=== PATIENT | male | born 1950 | race Caucasian/White ===

== ENCOUNTER → 2017-12-20 | Outpatient (CLI) | payer BC, MEDICARE ==
[~2017-12-20] MED LIST: ACET325; AMPDEX10 PO; ASPI81EC PO; CELE200 PO; CHLO500 PO; DHEA PO; DIVA250EC PO; DULO60; Depo-Testos200 MG/ML IM; ERGO400 PO; ESOM20 PO; FAMO20 PO; FISH1000 PO; Fish Oil 10001000 MG; GABA300 PO; GABA600 PO; LEVSOD100 PO; LORA.5 PO; MULVITMIND PO; Multivitamin1 EAC1; OMEP20ER PO; PRAV20 PO; Pravachol40 MG PO; TAMS.4ER; TRAM50 PO; VERA80 PO; ZOLP12.5 PO
[2017-12-20 18:19] LABS: BASOPHILS ABSOLUTE AUTO 0.05 K/mm3 (0.00-0.23); BASOPHILS PERCENT AUTO 1 % (0-2); EOSINOPHILS PERCENT AUTO 2 % (0-6); Hemoglobin 14.3 g/dL (13.5-17.5); IMMATURE GRAN PERCENT AUTO 0 % (0-1); LYMPHOCYTES ABSOLUTE AUTO 2.61 K/mm3 (0.84-5.20); LYMPHOCYTES PERCENT AUTO 39 % (21-46); MONOCYTES ABSOLUTE AUTO 0.57 K/mm3 (0.16-1.47); MONOCYTES PERCENT AUTO 9 % (4-13); Mean Corpuscular HGB 31.7 pg (26.0-34.0); Mean Corpuscular HGB Conc 34.9 g/dL (31.5-36.5); Mean Corpuscular Volume 91 fL (80-100); Mean Platelet Volume 9.8 fL (9.1-12.4); NEUTROPHILS ABSOLUTE AUTO 3.33 K/mm3 (1.96-9.15); NEUTROPHILS PERCENT AUTO 50 % (41-73); Platelet Count 208 K/mm3 (150-400); RDW Coefficient Variation 11.9 % (11.7-14.2); RDW Standard Deviation 39.5 fL (35.1-46.3); Red Blood Cell Count 4.51 M/mm3 (4.30-5.90); White Blood Cell Count 6.66 K/mm3 (4.00-11.30)
[2017-12-20 19:00] LABS: Alanine Aminotransfer (ALT/SGP 34 U/L (12-78); Albumin, Blood 4.2 g/dL (3.4-5.0); Albumin/Globulin Ratio 1.3 (0.8-1.8); Alk Phos 95 U/L (40-126); Aspartate Aminotrans (AST/SGOT 19 U/L (12-37); Bilirubin, Total 1.2 mg/dL (0.1-1.0); Blood Urea Nitrogen 15 mg/dL (8-24); Bun/Creatinine Ratio 12.2 (12.0-20.0); CO2, Blood 28 mmol/L (21-32); Calcium, Blood 9.5 mg/dL (8.5-10.1); Creatinine, Blood 1.23 mg/dL (0.60-1.20); Globulin, Blood 3.3 g/dL (2.2-4.0); Glomerular Filtration Rate 59 (60-); Glucose, Blood 92 mg/dL (70-99); Thyroid Stimulating Hormone 8.158 uIU/mL (0.360-4.800); Total Protein, Blood 7.5 g/dL (6.4-8.2)
[2017-12-20 19:03] LABS: Anion Gap 6 mmol/L (6-16); Chloride, Blood 104 mmol/L (98-108); Potassium, Blood 3.9 mmol/L (3.5-5.5); Sodium, Blood 138 mmol/L (136-145); Troponin I <0.017 ng/mL (0.000-0.040)
== END ==
LOC: LAB SHORT 18:14
PROVIDERS: Physician Assistant
DX: E03.9 Hypothyroidism, unspecified (principal); R07.9 Chest pain, unspecified
CPT/HCPCS: 80053; 83690; 84443; 84484; 85025

== ENCOUNTER → 2018-08-03 | Outpatient (CLI) | payer BC ==
[2018-08-03 17:27] LABS: BASOPHILS ABSOLUTE AUTO 0.07 K/mm3 (0.00-0.23); BASOPHILS PERCENT AUTO 1 % (0-2); EOSINOPHILS ABSOLUTE AUTO 0.05 K/mm3 (0.00-0.68); EOSINOPHILS PERCENT AUTO 1 % (0-6); Hematocrit 40.3 % (37.0-53.0); Hemoglobin 14.3 g/dL (13.5-17.5); IMMATURE GRAN ABSOLUTE AUTO 0.01 K/mm3 (0.00-0.10); IMMATURE GRAN PERCENT AUTO 0 % (0-1); LYMPHOCYTES ABSOLUTE AUTO 2.17 K/mm3 (0.84-5.20); LYMPHOCYTES PERCENT AUTO 35 % (21-46); MONOCYTES ABSOLUTE AUTO 0.69 K/mm3 (0.16-1.47); MONOCYTES PERCENT AUTO 11 % (4-13); Mean Corpuscular HGB 33.4 pg (26.0-34.0); Mean Corpuscular HGB Conc 35.5 g/dL (31.5-36.5); Mean Corpuscular Volume 94 fL (80-100); Mean Platelet Volume 9.7 fL (9.1-12.4); NEUTROPHILS ABSOLUTE AUTO 3.25 K/mm3 (1.96-9.15); NEUTROPHILS PERCENT AUTO 52 % (41-73); Platelet Count 221 K/mm3 (150-400); RDW Coefficient Variation 12.7 % (11.7-14.2); RDW Standard Deviation 43.6 fL (35.1-46.3); Red Blood Cell Count 4.28 M/mm3 (4.30-5.90); White Blood Cell Count 6.24 K/mm3 (4.00-11.30)
[2018-08-03 17:54] LABS: Alanine Aminotransfer (ALT/SGP 31 U/L (12-78); Albumin, Blood 4.3 g/dL (3.4-5.0); Albumin/Globulin Ratio 1.3 (0.8-1.8); Alk Phos 81 U/L (40-126); Anion Gap 11 mmol/L (6-16); Aspartate Aminotrans (AST/SGOT 24 U/L (12-37); Bilirubin, Total 0.9 mg/dL (0.1-1.0); Blood Urea Nitrogen 10 mg/dL (8-24); Bun/Creatinine Ratio 10.1 (12.0-20.0); CO2, Blood 26 mmol/L (21-32); Calcium, Blood 9.6 mg/dL (8.5-10.1); Chloride, Blood 105 mmol/L (98-108); Creatinine, Blood 0.99 mg/dL (0.60-1.20); Globulin, Blood 3.2 g/dL (2.2-4.0); Glomerular Filtration Rate >60 (60-); Glucose, Blood 93 mg/dL (70-99); Potassium, Blood 3.9 mmol/L (3.5-5.5); Sodium, Blood 142 mmol/L (136-145); Thyroid Stimulating Hormone 3.003 uIU/mL (0.360-4.800); Total Protein, Blood 7.5 g/dL (6.4-8.2)
== END | disposition home or self-care (01) ==
LOC: LAB EV 17:12 → LAB SHORT 17:12
PROVIDERS: Physician Assistant
DX: E03.9 Hypothyroidism, unspecified (principal); R07.0 Pain in throat
CPT/HCPCS: 80053; 84439; 84443; 84481; 85025; 87070

== ENCOUNTER 2019-09-05 08:40 | Day surgery (SDC) | payer BC ==
[~2019-09-05] VITALS: Ht 170.2 cm; Wt 89.4 kg
[~2019-09-05 08:40] MED LIST changes: +CELE100; +FISH OIL 1,0001 EAC1; +GABA300; +MELATONIN 10 M1 EACH; +OMEPRAZOLE20 MG; +PETADOLEX 7575 MG; +TRAZ50
--- NOTE | 2019-09-05 09:49 | NUR ---
09/05/19 0949 Chasity Taylor 0940- DR KUHN PREPPED PT IN [place]-OP HOLDING AREA FOR INTERSCALENE BLOCK. PT TOLERATED PROCEDURE WELL. NO COMPLICATIONS.
--- NOTE | 2019-09-05 12:17 | NUR ---
09/05/19 Katy6 Britney Lange PT RESTING ON BED, FAMILY AT BEDSIDE. PT VS WNL. PT DENIES ANY PAIN OR NAUSEA. WILL CONTINUE TO MONITOR.
== END 2019-09-05 13:45 | disposition home or self-care (01) ==
LOC: ORSCSDS 08:40
PROVIDERS: Orthopaedic Surgery
PROC: 0LQ14ZZ Repair Right Shoulder Tendon, Percutaneous Endoscopic Approach (ICD-10-PCS; principal; 2019-09-05 10:00)
PROC: 0LS14ZZ Reposition Right Shoulder Tendon, Percutaneous Endoscopic Approach (ICD-10-PCS; principal; 2019-09-05 10:00)
PROC: 0RNJ4ZZ Release Right Shoulder Joint, Percutaneous Endoscopic Approach (ICD-10-PCS; principal; 2019-09-05 10:00)
DX: M75.111 Incomplete rotator cuff tear or rupture of right shoulder, not specified as traumatic (principal); S46.111A Strain of muscle, fascia and tendon of long head of biceps, right arm, initial encounter; M75.41 Impingement syndrome of right shoulder; I10 Essential (primary) hypertension; E03.9 Hypothyroidism, unspecified; Z79.899 Other long term (current) drug therapy; E78.5 Hyperlipidemia, unspecified
CPT/HCPCS: C1713; J0171; J0690; J1100; J1885; J2001; J2250; J2370; J2405; J2704; J2795; J3010; J7120

== ENCOUNTER → 2020-01-25 | Outpatient (CLI) | payer BC | LOC: LAB EV 11:37 → LAB SHORT 11:37 | DX: J02.9 Acute pharyngitis, unspecified (principal) | CPT/HCPCS: 87081 ==

== ENCOUNTER 2020-08-24 15:23 | Emergency (ER) | payer BC ==
[~2020-08-24] VITALS: Ht 170.2 cm; Wt 90.7 kg
[2020-08-24 16:23] LABS: BASOPHILS ABSOLUTE AUTO 0.07 K/mm3 (0.00-0.23); BASOPHILS PERCENT AUTO 1 % (0-2); EOSINOPHILS PERCENT AUTO 2 % (0-6); Hematocrit 40.3 % (37.0-53.0); Hemoglobin 13.9 g/dL (13.5-17.5); IMMATURE GRAN ABSOLUTE AUTO 0.01 K/mm3 (0.00-0.10); IMMATURE GRAN PERCENT AUTO 0 % (0-1); LYMPHOCYTES ABSOLUTE AUTO 2.21 K/mm3 (0.84-5.20); LYMPHOCYTES PERCENT AUTO 35 % (21-46); MONOCYTES ABSOLUTE AUTO 0.61 K/mm3 (0.16-1.47); MONOCYTES PERCENT AUTO 10 % (4-13); Mean Corpuscular HGB 32.6 pg (26.0-34.0); Mean Corpuscular HGB Conc 34.5 g/dL (31.5-36.5); Mean Corpuscular Volume 95 fL (80-100); Mean Platelet Volume 10.4 fL (9.1-12.4); NEUTROPHILS ABSOLUTE AUTO 3.26 K/mm3 (1.96-9.15); NEUTROPHILS PERCENT AUTO 52 % (41-73); Platelet Count 182 K/mm3 (150-400); RDW Coefficient Variation 11.6 % (11.7-14.2); RDW Standard Deviation 39.9 fL (35.1-46.3); Red Blood Cell Count 4.26 M/mm3 (4.30-5.90); White Blood Cell Count 6.26 K/mm3 (4.00-11.30)
[2020-08-24 16:36] LABS: Alanine Aminotransfer (ALT/SGP 32 U/L (12-78); Albumin/Globulin Ratio 1.3 (0.8-1.8); Alk Phos 111 U/L (50-136); Anion Gap 7 mmol/L (6-16); Aspartate Aminotrans (AST/SGOT 20 U/L (12-37); Bilirubin, Total 0.8 mg/dL (0.1-1.0); Blood Urea Nitrogen 16 mg/dL (8-24); Bun/Creatinine Ratio 17.9 (12.0-20.0); CO2, Blood 24 mmol/L (21-32); Calcium, Blood 8.8 mg/dL (8.5-10.1); Chloride, Blood 111 mmol/L (98-108); Creatinine, Blood 0.89 mg/dL (0.60-1.20); Glomerular Filtration Rate >60 (60-); Glucose, Blood 108 mg/dL (70-99); Potassium, Blood 3.9 mmol/L (3.5-5.5); Sodium, Blood 142 mmol/L (136-145); Troponin I <0.015 ng/mL (0.000-0.040)
[2020-08-24] MEDS ORDERED: TIZA4 PO (20:07)
[2020-08-24] MEDS ORDERED: OMEP20ER PO (21:32)
[2020-08-24] MEDS ORDERED: MOTION RELIEF25 MG PO (21:32)
== END 2020-08-24 21:38 | disposition home or self-care (01) ==
LOC: ER 15:23
PROVIDERS: Physician Assistant
DX: R42 Dizziness and giddiness (principal); K21.9 Gastro-esophageal reflux disease without esophagitis; R51.9 Headache, unspecified; E03.9 Hypothyroidism, unspecified; F90.9 Attention-deficit hyperactivity disorder, unspecified type; Z88.5 Allergy status to narcotic agent; Z88.6 Allergy status to analgesic agent; Z79.899 Other long term (current) drug therapy
CPT/HCPCS: 36415; 70450; 70496; 70498; 71046; 80053; 83880; 84484; 85025; 93005; 93010; 96374; 99285-25; J2765; Q9967

== ENCOUNTER → 2021-09-16 | Outpatient (CLI) | payer MEDICARE, BC ==
[~2021-09-16] MED LIST changes: +MOTION RELIEF25 MG PO; +TIZA4 PO
[2021-09-16 15:49] LABS: BASOPHILS ABSOLUTE AUTO 0.05 K/mm3 (0.00-0.23); BASOPHILS PERCENT AUTO 1 % (0-2); EOSINOPHILS ABSOLUTE AUTO 0.13 K/mm3 (0.00-0.68); EOSINOPHILS PERCENT AUTO 2 % (0-6); Hematocrit 40.4 % (37.0-53.0); Hemoglobin 13.8 g/dL (13.5-17.5); IMMATURE GRAN ABSOLUTE AUTO 0.01 K/mm3 (0.00-0.10); IMMATURE GRAN PERCENT AUTO 0 % (0-1); LYMPHOCYTES ABSOLUTE AUTO 1.86 K/mm3 (0.84-5.20); LYMPHOCYTES PERCENT AUTO 35 % (21-46); MONOCYTES ABSOLUTE AUTO 0.53 K/mm3 (0.16-1.47); MONOCYTES PERCENT AUTO 10 % (4-13); Mean Corpuscular HGB 32.5 pg (26.0-34.0); Mean Corpuscular HGB Conc 34.2 g/dL (31.5-36.5); Mean Corpuscular Volume 95 fL (80-100); Mean Platelet Volume 10.9 fL (9.1-12.4); NEUTROPHILS ABSOLUTE AUTO 2.78 K/mm3 (1.96-9.15); NEUTROPHILS PERCENT AUTO 52 % (41-73); Platelet Count 199 K/mm3 (150-400); RDW Coefficient Variation 11.7 % (11.7-14.2); RDW Standard Deviation 40.5 fL (35.1-46.3); Red Blood Cell Count 4.25 M/mm3 (4.30-5.90); White Blood Cell Count 5.36 K/mm3 (4.00-11.30)
[2021-09-16 16:10] LABS: Alanine Aminotransfer (ALT/SGP 32 U/L (12-78); Albumin, Blood 3.6 g/dL (3.4-5.0); Alk Phos 105 U/L (50-136); Anion Gap 7 mmol/L (6-16); Aspartate Aminotrans (AST/SGOT 17 U/L (12-37); Bilirubin, Total 0.7 mg/dL (0.1-1.0); Blood Urea Nitrogen 18 mg/dL (8-24); Bun/Creatinine Ratio 20.4 (12.0-20.0); CO2, Blood 24 mmol/L (21-32); Calcium, Blood 8.9 mg/dL (8.5-10.1); Chloride, Blood 106 mmol/L (98-108); Creatinine, Blood 0.88 mg/dL (0.60-1.20); Globulin, Blood 3.5 g/dL (2.2-4.0); Glomerular Filtration Rate >60 (60-); Glucose, Blood 103 mg/dL (70-99); Potassium, Blood 4.2 mmol/L (3.5-5.5); Sodium, Blood 137 mmol/L (136-145); Total Protein, Blood 7.1 g/dL (6.4-8.2)
== END | disposition home or self-care (01) ==
LOC: LAB SHORT 12:59 → LAB 12:59
PROVIDERS: Physician Assistant
DX: E03.9 Hypothyroidism, unspecified (principal); R53.83 Other fatigue
CPT/HCPCS: 80053; 84443; 85025

== ENCOUNTER → 2021-10-10 | Outpatient (CLI) | payer MEDICARE, BC ==
[2021-10-11 11:00] LABS: Adenovirus F 40/41 Not Detected (NOT DETECT); Astrovirus Not Detected (NOT DETECT); Campylobacter Sp Not Detected (NOT DETECT); Cryptosporidium Not Detected (NOT DETECT); Cyclospora Cayetanensis Not Detected (NOT DETECT); E. Coli O157 Not Detected (NOT DETECT); Entamoeba Histolytica Not Detected (NOT DETECT); Enteroaggregative E. coli-EAEC Not Detected (NOT DETECT); Enteropathogenic E. coli-EPEC Not Detected (NOT DETECT); Enterotoxigenic E. coli-ETEC Not Detected (NOT DETECT); Giardia Lamblia Not Detected (NOT DETECT); Norovirus GI/GII Not Detected (NOT DETECT); Plesiomonas Shigelloides Not Detected (NOT DETECT); Rotavirus A Not Detected (NOT DETECT); Salmonella Sp Not Detected (NOT DETECT); Sapovirus Not Detected (NOT DETECT); Shiga Toxin-prod E. coli-STEC Not Detected (NOT DETECT); Shigella/Enteroin E. coli-EIEC Not Detected (NOT DETECT); Vibrio Cholerae Not Detected (NOT DETECT); Vibrio Sp Not Detected (NOT DETECT); Yersinia Enterocolitica Not Detected (NOT DETECT)
== END | disposition home or self-care (01) ==
LOC: LAB 08:30 → LAB SHORT 08:30
PROVIDERS: Physician Assistant Surgical
DX: R19.7 Diarrhea, unspecified (principal)
CPT/HCPCS: 0097U

== ENCOUNTER 2023-01-01 09:22 | Emergency (ER) | payer MEDICARE, BC ==
[~2023-01-01] VITALS: Ht 170.2 cm; Wt 86.2 kg
[2023-01-01 09:49] LABS: BASOPHILS ABSOLUTE AUTO 0.04 K/mm3 (0.00-0.23); BASOPHILS PERCENT AUTO 1 % (0-2); EOSINOPHILS ABSOLUTE AUTO 0.08 K/mm3 (0.00-0.68); EOSINOPHILS PERCENT AUTO 1 % (0-6); Hematocrit 43.5 % (37.0-53.0); Hemoglobin 15.3 g/dL (13.5-17.5); IMMATURE GRAN ABSOLUTE AUTO 0.01 K/mm3 (0.00-0.10); IMMATURE GRAN PERCENT AUTO 0 % (0-1); LYMPHOCYTES ABSOLUTE AUTO 2.25 K/mm3 (0.84-5.20); LYMPHOCYTES PERCENT AUTO 36 % (21-46); MONOCYTES ABSOLUTE AUTO 0.65 K/mm3 (0.16-1.47); MONOCYTES PERCENT AUTO 10 % (4-13); Mean Corpuscular HGB 32.8 pg (26.0-34.0); Mean Corpuscular HGB Conc 35.2 g/dL (31.5-36.5); Mean Corpuscular Volume 93 fL (80-100); NEUTROPHILS ABSOLUTE AUTO 3.25 K/mm3 (1.96-9.15); NEUTROPHILS PERCENT AUTO 52 % (41-73); Platelet Count 205 K/mm3 (150-400); RDW Coefficient Variation 11.5 % (11.7-14.2); RDW Standard Deviation 39.5 fL (35.1-46.3); Red Blood Cell Count 4.66 M/mm3 (4.30-5.90); White Blood Cell Count 6.28 K/mm3 (4.00-11.30)
[2023-01-01] MEDS ORDERED: LEVSOD75 PO (09:57)
[2023-01-01] MEDS ORDERED: VERA120 PO (09:57)
[2023-01-01] MEDS ORDERED: TAMS.4ER PO (09:57)
[2023-01-01] MEDS ORDERED: PRAV20 PO (09:57)
[2023-01-01] MEDS ORDERED: TRAZ50 PO (09:58)
[2023-01-01 10:10] LABS: Albumin/Globulin Ratio 1.2 (0.8-1.8); Bilirubin, Total 0.8 mg/dL (0.1-1.0); Calcium, Blood 9.7 mg/dL (8.5-10.1); Globulin, Blood 3.4 g/dL (2.2-4.0); Total Protein, Blood 7.4 g/dL (6.4-8.2)
[2023-01-01 10:44] LABS: Influenza A, PCR NEGATIVE (NEGATIVE); Influenza B, PCR NEGATIVE (NEGATIVE); Resp Syncytial Virus, PCR NEGATIVE (NEGATIVE); SARS-Cov-2 (COVID-19) PCR, MMC NEGATIVE (NEGATIVE)
[2023-01-02] MEDS ORDERED: ELIQUIS5 M2 PO (17:31)
== END 2023-01-01 13:45 | disposition home or self-care (01) ==
LOC: ER 09:22
PROVIDERS: Physician Assistant
DX: R07.9 Chest pain, unspecified (principal); E03.9 Hypothyroidism, unspecified; Z88.5 Allergy status to narcotic agent; Z88.6 Allergy status to analgesic agent; Z79.899 Other long term (current) drug therapy; Z20.822 Contact with and (suspected) exposure to COVID-19
CPT/HCPCS: 0241U; 36415; 71045; 80053; 83690; 83880; 84439; 84484; 85025; 85379; 93005; 93010; A9270

== ENCOUNTER 2023-01-02 13:36 | Emergency (ER) | payer MEDICARE, BC ==
[~2023-01-02] VITALS: Ht 170.2 cm; Wt 86.2 kg
[~2023-01-02 13:36] MED LIST changes: +LEVSOD75 PO; +TAMS.4ER PO; +TRAZ50 PO; +VERA120 PO
[2023-01-02] MEDS ORDERED: ELIQUIS5 M2 PO (17:31)
== END 2023-01-02 18:16 | disposition home or self-care (01) ==
LOC: ER 13:36
DX: I26.93 Single subsegmental thrombotic pulmonary embolism without acute cor pulmonale (principal); E03.9 Hypothyroidism, unspecified; Z88.5 Allergy status to narcotic agent; Z88.6 Allergy status to analgesic agent; Z79.899 Other long term (current) drug therapy
CPT/HCPCS: 36415; 84484; A9270

== ENCOUNTER → 2023-02-01 | Outpatient (CLI) | payer MEDICARE, BC ==
[~2023-02-01] MED LIST changes: +ELIQUIS5 M2 PO
[2023-02-02 07:16] LABS: Stool Occult Bld Immuno 1 Positive (NEGATIVE)
== END | disposition home or self-care (01) ==
LOC: LAB 13:03 → LAB SHORT 13:03
PROVIDERS: Registered Nurse Oncology
DX: I26.99 Other pulmonary embolism without acute cor pulmonale (principal)
CPT/HCPCS: 82274

== ENCOUNTER → 2023-02-07 | Outpatient (CLI) | payer MEDICARE, BC ==
[2023-02-08 09:09] LABS: Stool Occult Bld Immuno 1 Positive (NEGATIVE)
== END | disposition home or self-care (01) ==
LOC: LAB 13:07 → LAB SHORT 13:07 → LAB FUT 01-31 13:40
PROVIDERS: Registered Nurse Oncology
DX: I26.99 Other pulmonary embolism without acute cor pulmonale (principal)
CPT/HCPCS: 82274

== ENCOUNTER 2023-07-13 11:36 | Inpatient (IN) | payer MEDICARE, BC ==
[~2023-07-13] VITALS: Ht 170.2 cm; Wt 87.2 kg
[2023-07-13 12:26] LABS: BASOPHILS ABSOLUTE AUTO 0.04 K/mm3 (0.00-0.23); BASOPHILS PERCENT AUTO 1 % (0-2); EOSINOPHILS ABSOLUTE AUTO 0.19 K/mm3 (0.00-0.68); EOSINOPHILS PERCENT AUTO 2 % (0-6); Hematocrit 40.2 % (37.0-53.0); IMMATURE GRAN ABSOLUTE AUTO 0.02 K/mm3 (0.00-0.10); IMMATURE GRAN PERCENT AUTO 0 % (0-1); LYMPHOCYTES ABSOLUTE AUTO 2.18 K/mm3 (0.84-5.20); LYMPHOCYTES PERCENT AUTO 26 % (21-46); MONOCYTES ABSOLUTE AUTO 0.75 K/mm3 (0.16-1.47); MONOCYTES PERCENT AUTO 9 % (4-13); Mean Corpuscular HGB 32.1 pg (26.0-34.0); Mean Corpuscular HGB Conc 34.8 g/dL (31.5-36.5); Mean Corpuscular Volume 92 fL (80-100); NEUTROPHILS ABSOLUTE AUTO 5.12 K/mm3 (1.96-9.15); NEUTROPHILS PERCENT AUTO 62 % (41-73); Platelet Count 231 K/mm3 (150-400); RDW Coefficient Variation 11.9 % (11.7-14.2); RDW Standard Deviation 40.3 fL (35.1-46.3); Red Blood Cell Count 4.36 M/mm3 (4.30-5.90)
[2023-07-13] MEDS ORDERED: ASPI81CH PO (12:28)
[2023-07-13] MEDS ORDERED: LIPITOR80 MG PO (12:29)
[2023-07-13] MEDS ORDERED: COLCRYS0.6 M1 PO (12:29)
[2023-07-13] MEDS ORDERED: PLAVIX75 MG PO (12:29)
[2023-07-13] MEDS ORDERED: METO50ER PO (12:30)
[2023-07-13] MEDS ORDERED: SPIRONOLACTONE25 MG PO (12:30)
[2023-07-13] MEDS ORDERED: LOSA50 PO (12:30)
[2023-07-13] MEDS ORDERED: NITR.4SL SL (12:31)
[2023-07-13] MEDS ORDERED: FAMO20 PO (12:32)
[2023-07-13 12:44] LABS: Albumin, Blood 3.4 g/dL (3.4-5.0); Albumin/Globulin Ratio 0.9 (0.8-1.8); Bilirubin, Total 0.7 mg/dL (0.1-1.0); Bun/Creatinine Ratio 18.6 (12.0-20.0); Calcium, Blood 9.1 mg/dL (8.5-10.1); Creatinine, Blood 0.97 mg/dL (0.60-1.20); Globulin, Blood 3.6 g/dL (2.2-4.0); Potassium, Blood 4.5 mmol/L (3.5-5.5)
[2023-07-13] MEDS ORDERED: PROTONIX40 M2 PO (12:47)
[2023-07-13 15:17] LABS: Anti-Xa UFH, PHA Monitoring <0.10 IU/mL; International Normalized Ratio 1.02; Prothrombin Time Results 10.7 Sec (9.7-11.5)
[2023-07-13 19:50] VITALS: BP 108/63
--- NOTE | 2023-07-13 23:07 | NUR ---
TRANSFER NOTE/ASSUMPTION OF CARE THIS RN RECEIVED REPORT FROM BETHANY DUBOIS IN THE ED VIA PHONE. PT TRANSFERRED TO PCU AT 2200. A&O X4. ABLE TO MAKE NEEDS KNOWN. TRANSFERRED FROM [facility] TO AMBULANCE VIA SBA. USING URINAL FOR ACCURATE I/O'S. PT NOT RECEPTIVE TO EDUCATION ABOUT PLAN OF CARE WHILE HERE. PLACED ON 2L VIA NC FOR ACTIVITY D/T SOB WITH EXERTION. BP STABLE. AFIB ON MONITOR WITH HR 100'S. DENIES CHEST PAIN/PRESSURE. BED IN LOWEST POSITON AND CALL LIGHT WITHIN REACH.
[2023-07-13 23:28] VITALS: BP 109/75
[2023-07-14 04:45] VITALS: BP 117/83
--- NOTE | 2023-07-14 05:20 | NUR ---
SHIFT SUMMARY THIS RN ASSUMED CARE OF PATIENT AT 1900. PT WITH NO CHEST PAIN/PRESSURE OR SOB UNTIL ABOUT 0430 THIS AM, AT WHICH TIME PT CALLED THIS RN INTO THE ROOM TO REPORT SHARP EPIGASTRIC PAIN. PT REPORTED THAT IT DID NOT FEEL LIKE PRESSURE PREVIOUS WI, AND THAT THIS TYPE OF PAIN OCCURRED IN THE ER, AT WHICH TIME THEY GAVE HIM "MEDICINE FOR MY STOMACH AND IT HELPED THE PAIN". THIS RN SPOKE TO MD CLEMONS REGARDING PAIN. REPEAT EKG DONE WITH NO OBVIOUS ACUTE CHANGES SEEN BY THIS RN COMPARED TO PREVIOUS EKG. HEP GTT INFUSING PER EMAR. WITH ORDERS FOR MAALOX PLUS GIVEN IN ER PREVIOUSLY. MEDICATED PER EMAR. OTHERWISE PT HAD AN UNEVENTFUL NIGHT. VITALS STABLE. SR WITH PVC'S NOTED WITH HR 60'S. ON RA WITH SPO2 >92%. AFEBRILE. BP STABLE. PT WORE PERSONAL CPAP FOR NOC. A&O X4. CALLING APPROPRIATELY. AMBULATING TO BATHROOM WT SBA. BED IN LOWEST POSITION AND CALL LIGHT WITHIN REACH. THIS RN WILL REPORT TO ONCOMING RN.
[2023-07-14 07:24] VITALS: BP 119/80
[2023-07-14 08:33] VITALS: BP 116/80
[2023-07-14 11:18] VITALS: BP 117/67
--- NOTE | 2023-07-14 11:54 | NUR ---
PT VISITING WITH . CALL LIGHT WITHIN REACH.
[2023-07-14 14:05] LABS: BASOPHILS ABSOLUTE AUTO 0.07 K/mm3 (0.00-0.23); BASOPHILS PERCENT AUTO 1 % (0-2); EOSINOPHILS ABSOLUTE AUTO 0.16 K/mm3 (0.00-0.68); EOSINOPHILS PERCENT AUTO 2 % (0-6); Hematocrit 41.8 % (37.0-53.0); Hemoglobin 14.6 g/dL (13.5-17.5); IMMATURE GRAN ABSOLUTE AUTO 0.01 K/mm3 (0.00-0.10); IMMATURE GRAN PERCENT AUTO 0 % (0-1); LYMPHOCYTES ABSOLUTE AUTO 2.26 K/mm3 (0.84-5.20); LYMPHOCYTES PERCENT AUTO 34 % (21-46); MONOCYTES ABSOLUTE AUTO 0.69 K/mm3 (0.16-1.47); MONOCYTES PERCENT AUTO 10 % (4-13); Mean Corpuscular HGB 32.6 pg (26.0-34.0); Mean Corpuscular HGB Conc 34.9 g/dL (31.5-36.5); Mean Corpuscular Volume 93 fL (80-100); Mean Platelet Volume 9.8 fL (9.1-12.4); NEUTROPHILS ABSOLUTE AUTO 3.44 K/mm3 (1.96-9.15); NEUTROPHILS PERCENT AUTO 52 % (41-73); Platelet Count 220 K/mm3 (150-400); RDW Standard Deviation 41.1 fL (35.1-46.3); Red Blood Cell Count 4.48 M/mm3 (4.30-5.90); White Blood Cell Count 6.63 K/mm3 (4.00-11.30)
[2023-07-14 14:33] LABS: Albumin, Blood 3.4 g/dL (3.4-5.0); Bilirubin, Total 0.6 mg/dL (0.1-1.0); Bun/Creatinine Ratio 16.7 (12.0-20.0); Calcium, Blood 8.9 mg/dL (8.5-10.1); Creatinine, Blood 1.02 mg/dL (0.60-1.20); Globulin, Blood 3.3 g/dL (2.2-4.0); Magnesium, Blood 2.5 mg/dL (1.6-2.4); Potassium, Blood 4.3 mmol/L (3.5-5.5); Total Protein, Blood 6.7 g/dL (6.4-8.2)
[2023-07-14 16:06] VITALS: BP 94/54
[2023-07-14 21:10] VITALS: BP 117/77
[2023-07-15] VITALS (12 sets, daily range): BP systolic 102–124; BP diastolic 62–87
--- NOTE | 2023-07-15 01:14 | NUR ---
V TACH AT 0114 CALL FROM Exec THAT PT HAD A 7 BEAT RUN OF V TACH. PT RESTING IN BED WITHOUT ACCUTE DISTRESS. COMPUTER INSTRUCTOR NOTIFIED, PER DISCUSSION WITH HER NO INTERVENTIIONS NEEDED AT THIS TIME, WATCH AM LABS. WILL NOTIFY DAYSHIFT RN FOR FURTHER FOLLOW UP.
[2023-07-15 04:18] LABS: Bun/Creatinine Ratio 16.3 (12.0-20.0); Calcium, Blood 9.1 mg/dL (8.5-10.1); Creatinine, Blood 1.04 mg/dL (0.60-1.20); Potassium, Blood 4.5 mmol/L (3.5-5.5)
--- NOTE | 2023-07-15 05:44 | NUR ---
SHIFT SUMMARY NO ACUTE CHANGES TO REPORT OVERNIGHT, PT HAS RESTED T/O THE SHIFT. PT HAS HAD MINIMAL CHEST/EPIGASTRIC PAIN THIS SHIFT. HE RATES PAIN 1/10. VITALS ARE STABLE. PT HAS BEEN INDEPENDENT IN THE ROOM MAKES NEEDS KNOWN. PLAN IS FOR ANGIO TODAY, HE HAS BEEN NPO SINCE MIDNIGHT. BED IN LOWEST POSITION, CALL LIGHT WITHIN REACH.
--- NOTE | 2023-07-15 07:49 | NUR ---
PT A&OX4 ABLE TO MAKE NEEDS KNOWN, PLEASANT AND COOPERATIVE WITH CARE. PT DENIES CHEST PAIN/PRESSURE, NAUSEA/VOMITING, EPIGASTRIC PAIN, STATED 0/10 PAIN FROM PATIENT. PT DENIES SOB. VITALS STABLE. PT ON ROOM AIR O2 SATURATION ABOVE 93%. PT NPO AWAITING ANGIO THIS MORNING, MORNING BEING HELD UNTIL AFTER PROCEDURE. PT RESTING IN BED, CALL LIGHT WITHIN REACH.
--- NOTE | 2023-07-15 08:49 | NUR ---
PT LEFT FOR PROCEDURE AT 0830. PT TRANSFERED VIA HOSPITAL BED AND ON RA.
--- NOTE | 2023-07-15 11:24 | NUR ---
PT HAD ANGIO PERFORMED THIS MORNING. PER REPORT FROM DRIVER OPERATOR, TR BAND WAS PLACED AT 9:30 W/15ML AIR. VITALS TAKEN AND SITE CHECKED PER PROTOCOL. SITE WNL, NO REDNESS, INFLAMMATION, OR BLEEDING. MORNING MEDS GIVEN WHEN PT ARRIVED BACK ON UNIT. PT RESTING IN HIS ROOM WITH FAMILY. CALL LIGHT WITHIN REACH.
[2023-07-15] MEDS ORDERED: SUCR1 PO ×2 (11:57→15:16)
[2023-07-15] MEDS ORDERED: Imdur30 MG PO (11:59)
[2023-07-15] MEDS ORDERED: ALMACONE SUSPE355 ML PO (12:01)
--- NOTE | 2023-07-15 13:40 | NUR ---
NO REDNESS, SWELLING, DISCHARGE, OR BLEEDING FROM R RADIAL SITE POST ANGIOGRAM. 2ML AIR REMOVED AT 1135, 1220, 1238, 1307, AND THE REST REMOVED AT 1330. PT TOLERATING WELL. ARM BOARD AND TR BAND STILL IN PLACE.
[2023-07-15] MEDS ORDERED: PANT40 PO (15:09)
--- NOTE | 2023-07-15 15:59 | NUR ---
DISCHARGE UPDATE DISCHARGE PACKET GONE OVER WITH PT AND PT AT 1550 BY JESSICA CASTILLO RN. PT DISCHARGED AT 1610 VIA WHEELCHAIR ANF ON RA. PT ABLE TO TRANSFER SELF TO AND FROM WHEELCHAIR ON HIS OWN, TOLERATED WELL. RADIAL SITE EDUCATION GONE OVER WITH PT AND PT AT THIS TIME. RADIAL SITE COVERED WITH TEGADERM, SITE C/D/I NO HEMATOMA NOTED. PT BELONGINGS IN BAGS AND WITH PT AT TIME OF DISCHARGE. DISCHARGE PACKET WIT PT AT TIME OF DISCHARGE.
== END 2023-07-15 16:04 | disposition home or self-care (01) | DRG 281 ==
LOC: ER 11:36 → PCU 11:37 → MEDS 11:37 → PCU 18:11
PROVIDERS: Emergency Medicine; Family Medicine; Internal Medicine Interventional Cardiology; Student in an Organized Health Care Education/Training Program; ADMIT Internal Medicine
PROC: B210YZZ Fluoroscopy of Single Coronary Artery using Other Contrast (ICD-10-PCS; principal; 2023-07-15)
PROC: 5A09357 Assistance with Respiratory Ventilation, Less than 24 Consecutive Hours, Continuous Positive Airway Pressure (ICD-10-PCS; 2023-07-15)
PROC: B218YZZ Fluoroscopy of Left Internal Mammary Bypass Graft using Other Contrast (ICD-10-PCS; 2023-07-15)
DX: I21.4 Non-ST elevation (NSTEMI) myocardial infarction (principal); I24.1 Dressler's syndrome; I50.22 Chronic systolic (congestive) heart failure; I25.10 Atherosclerotic heart disease of native coronary artery without angina pectoris; R10.13 Epigastric pain; E78.5 Hyperlipidemia, unspecified; E03.9 Hypothyroidism, unspecified; G47.33 Obstructive sleep apnea (adult) (pediatric); G47.00 Insomnia, unspecified; F90.9 Attention-deficit hyperactivity disorder, unspecified type; M54.9 Dorsalgia, unspecified; G89.29 Other chronic pain; R94.31 Abnormal electrocardiogram [ECG] [EKG]; Z79.82 Long term (current) use of aspirin; Z98.890 Other specified postprocedural states; Z95.5 Presence of coronary angioplasty implant and graft; Z99.89 Dependence on other enabling machines and devices; I25.2 Old myocardial infarction; Z86.711 Personal history of pulmonary embolism; Q89.9 Congenital malformation, unspecified; Z88.5 Allergy status to narcotic agent; Z88.8 Allergy status to other drugs, medicaments and biological substances; Z79.899 Other long term (current) drug therapy; Z79.01 Long term (current) use of anticoagulants; Z86.010 Personal history of colon polyps; Z79.02 Long term (current) use of antithrombotics/antiplatelets
CPT/HCPCS: 36415; 71046; 76937; 80048; 80053; 83690; 83735; 83880; 84484; 85025; 85379; 85520; 85610; 85730; 93005; 93010; 93308; 93321; 93454; 94660; 94762; 96365; 96366; 96375; 99152; 99153; 99285-25; A9270; C1769; C1887; C1894; G0378; J1644; J2250; J3010; J7030; J7050; Q9967

== ENCOUNTER 2023-08-11 08:24 | Day surgery (SDC) | payer MEDICARE, BC ==
[~2023-08-11 08:24] MED LIST changes: +ALMACONE SUSPE355 ML PO; +ASPI81CH PO; +COLCRYS0.6 M1 PO; +Imdur30 MG PO; +LIPITOR80 MG PO; +LOSA50 PO; +METO50ER PO; +NITR.4SL SL; +PANT40 PO; +PLAVIX75 MG PO; +PROTONIX40 M2 PO; +SPIRONOLACTONE25 MG PO; +SUCR1 PO
== END 2023-08-11 22:36 | disposition home or self-care (01) ==
LOC: CT 08:24
DX: Z01.810 Encounter for preprocedural cardiovascular examination (principal); E78.2 Mixed hyperlipidemia; I25.10 Atherosclerotic heart disease of native coronary artery without angina pectoris; Z98.61 Coronary angioplasty status
CPT/HCPCS: 75571

== ENCOUNTER 2023-08-30 20:04 | Observation (INO) | payer MEDICARE, BC ==
[~2023-08-30] VITALS: Ht 170.2 cm; Wt 86.7 kg
[2023-08-30 20:31] LABS: BASOPHILS ABSOLUTE AUTO 0.05 K/mm3 (0.00-0.23); BASOPHILS PERCENT AUTO 0 % (0-2); EOSINOPHILS ABSOLUTE AUTO 0.02 K/mm3 (0.00-0.68); EOSINOPHILS PERCENT AUTO 0 % (0-6); Hematocrit 40.7 % (37.0-53.0); IMMATURE GRAN ABSOLUTE AUTO 0.08 K/mm3 (0.00-0.10); IMMATURE GRAN PERCENT AUTO 1 % (0-1); LYMPHOCYTES ABSOLUTE AUTO 2.74 K/mm3 (0.84-5.20); LYMPHOCYTES PERCENT AUTO 24 % (21-46); MONOCYTES ABSOLUTE AUTO 0.97 K/mm3 (0.16-1.47); MONOCYTES PERCENT AUTO 8 % (4-13); Mean Corpuscular HGB 31.9 pg (26.0-34.0); Mean Corpuscular HGB Conc 34.4 g/dL (31.5-36.5); Mean Corpuscular Volume 93 fL (80-100); Mean Platelet Volume 10.2 fL (9.1-12.4); NEUTROPHILS ABSOLUTE AUTO 7.64 K/mm3 (1.96-9.15); NEUTROPHILS PERCENT AUTO 67 % (41-73); Platelet Count 224 K/mm3 (150-400); RDW Coefficient Variation 12.3 % (11.7-14.2); Red Blood Cell Count 4.39 M/mm3 (4.30-5.90)
[2023-08-30 20:50] LABS: Albumin, Blood 3.9 g/dL (3.4-5.0); Albumin/Globulin Ratio 1.1 (0.8-1.8); Bun/Creatinine Ratio 13.6 (12.0-20.0); Calcium, Blood 9.3 mg/dL (8.5-10.1); Creatinine, Blood 1.1 mg/dL (0.60-1.20); Globulin, Blood 3.4 g/dL (2.2-4.0); Potassium, Blood 4.3 mmol/L (3.5-5.5); Total Protein, Blood 7.3 g/dL (6.4-8.2)
[2023-08-31 00:37] VITALS: BP 161/87
[2023-08-31] MEDS ORDERED: Carafate1 GM/10 ML PO (00:37)
[2023-08-31] MEDS ORDERED: AMOCLA875 PO (01:11)
[2023-08-31] MEDS ORDERED: BENZ100A PO (01:11)
[2023-08-31] MEDS ORDERED: PRED20 PO (01:12)
--- NOTE | 2023-08-31 02:32 | NUR ---
PT ADMITTED FROM THE ER WITH ELEVATED TROPONIN, PT ALERT AND ORIENTED, ABLE TO AMBULATE INDEPENDENTLY, ORIENTED PT TO ROOM AND CALL SYSTEM, EDUCATED PT ABOUT SAFETY, WILL CONT TO MONITOR
--- NOTE | 2023-08-31 05:01 | NUR ---
SUMMARY PT RESTING QUIETLY IN BED, PT WAKES EASILY, DENIES ANY CHEST PAIN T/O THE NIGHT, WHILE SLEEPING PT ALEJANDRO INTO THE 30'S, VSS, WILL CONT TO MONITOR
[2023-08-31 05:26] VITALS: BP 114/74
[2023-08-31 07:35] VITALS: BP 124/77
[2023-08-31 11:03] LABS: BASOPHILS ABSOLUTE AUTO 0.03 K/mm3 (0.00-0.23); BASOPHILS PERCENT AUTO 0 % (0-2); EOSINOPHILS ABSOLUTE AUTO 0.01 K/mm3 (0.00-0.68); EOSINOPHILS PERCENT AUTO 0 % (0-6); Hematocrit 41.4 % (37.0-53.0); Hemoglobin 14.3 g/dL (13.5-17.5); IMMATURE GRAN ABSOLUTE AUTO 0.06 K/mm3 (0.00-0.10); IMMATURE GRAN PERCENT AUTO 1 % (0-1); LYMPHOCYTES ABSOLUTE AUTO 1.46 K/mm3 (0.84-5.20); LYMPHOCYTES PERCENT AUTO 13 % (21-46); MONOCYTES ABSOLUTE AUTO 0.56 K/mm3 (0.16-1.47); MONOCYTES PERCENT AUTO 5 % (4-13); Mean Corpuscular HGB 31.8 pg (26.0-34.0); Mean Corpuscular HGB Conc 34.5 g/dL (31.5-36.5); Mean Corpuscular Volume 92 fL (80-100); Mean Platelet Volume 10.2 fL (9.1-12.4); NEUTROPHILS ABSOLUTE AUTO 9.04 K/mm3 (1.96-9.15); NEUTROPHILS PERCENT AUTO 81 % (41-73); Platelet Count 199 K/mm3 (150-400); RDW Coefficient Variation 12.2 % (11.7-14.2); RDW Standard Deviation 41.4 fL (35.1-46.3); White Blood Cell Count 11.16 K/mm3 (4.00-11.30)
[2023-08-31 11:21] LABS: Albumin, Blood 3.6 g/dL (3.4-5.0); Albumin/Globulin Ratio 1.1 (0.8-1.8); Bun/Creatinine Ratio 18.6 (12.0-20.0); Calcium, Blood 9.2 mg/dL (8.5-10.1); Creatinine, Blood 0.91 mg/dL (0.60-1.20); Globulin, Blood 3.3 g/dL (2.2-4.0); Potassium, Blood 4.4 mmol/L (3.5-5.5); Total Protein, Blood 6.9 g/dL (6.4-8.2)
[2023-08-31 13:45] LABS: Influenza A, PCR NEGATIVE (NEGATIVE); Influenza B, PCR NEGATIVE (NEGATIVE); Resp Syncytial Virus, PCR NEGATIVE (NEGATIVE); SARS-Cov-2 (COVID-19) PCR, MMC NEGATIVE (NEGATIVE)
[2023-08-31 15:18] VITALS: BP 102/73
--- NOTE | 2023-08-31 18:12 | NUR ---
PT DISCHARGED WITH INSTRUCTIONS 1804, PLAN TO FOLLOW UP WITH CARDIO MONDAY DR MICHEL. FIVE ESCORTED PT OUT TO PRIVATE CAR, DECLINED WHEELCHAIR
== END 2023-08-31 18:09 | disposition home or self-care (01) ==
LOC: ER 20:04 → MEDS 20:05
PROVIDERS: Internal Medicine; Student in an Organized Health Care Education/Training Program; ADMIT Internal Medicine
DX: R07.89 Other chest pain (principal); I25.10 Atherosclerotic heart disease of native coronary artery without angina pectoris; I25.2 Old myocardial infarction; E03.9 Hypothyroidism, unspecified; I50.22 Chronic systolic (congestive) heart failure; Z79.02 Long term (current) use of antithrombotics/antiplatelets; F90.9 Attention-deficit hyperactivity disorder, unspecified type; G47.30 Sleep apnea, unspecified; R73.9 Hyperglycemia, unspecified; Z20.822 Contact with and (suspected) exposure to COVID-19
CPT/HCPCS: 0241U; 36415; 71046; 80053; 84484; 85025; 93005; 93010; 96372; 99285-25; A9270; G0378; J1650

== ENCOUNTER 2023-10-10 14:21 | Observation (INO) | payer MEDICARE, BC ==
[~2023-10-10] VITALS: Ht 170.2 cm; Wt 88.4 kg
[~2023-10-10 14:21] MED LIST changes: +AMOCLA875 PO; +BENZ100A PO; +Carafate1 GM/10 ML PO; +EUTHYROX88 MCG PO; +Isosorbide Mono30 MG PO; -LEVSOD75 PO; +METO25ER PO; -METO50ER PO; -NITR.4SL SL; +PRED20 PO
[2023-10-10 14:52] LABS: BASOPHILS ABSOLUTE AUTO 0.07 K/mm3 (0.00-0.23); BASOPHILS PERCENT AUTO 1 % (0-2); EOSINOPHILS ABSOLUTE AUTO 0.14 K/mm3 (0.00-0.68); EOSINOPHILS PERCENT AUTO 2 % (0-6); Hematocrit 41.6 % (37.0-53.0); Hemoglobin 14.2 g/dL (13.5-17.5); IMMATURE GRAN ABSOLUTE AUTO 0.02 K/mm3 (0.00-0.10); IMMATURE GRAN PERCENT AUTO 0 % (0-1); LYMPHOCYTES ABSOLUTE AUTO 2.49 K/mm3 (0.84-5.20); LYMPHOCYTES PERCENT AUTO 32 % (21-46); MONOCYTES ABSOLUTE AUTO 0.73 K/mm3 (0.16-1.47); MONOCYTES PERCENT AUTO 10 % (4-13); Mean Corpuscular HGB 32.4 pg (26.0-34.0); Mean Corpuscular HGB Conc 34.1 g/dL (31.5-36.5); Mean Corpuscular Volume 95 fL (80-100); Mean Platelet Volume 9.9 fL (9.1-12.4); NEUTROPHILS ABSOLUTE AUTO 4.25 K/mm3 (1.96-9.15); NEUTROPHILS PERCENT AUTO 55 % (41-73); Platelet Count 184 K/mm3 (150-400); RDW Coefficient Variation 12.8 % (11.7-14.2); RDW Standard Deviation 44.9 fL (35.1-46.3); Red Blood Cell Count 4.38 M/mm3 (4.30-5.90)
[2023-10-10 15:17] LABS: Albumin, Blood 3.9 g/dL (3.4-5.0); Albumin/Globulin Ratio 1.3 (0.8-1.8); Bun/Creatinine Ratio 18.4 (12.0-20.0); Creatinine, Blood 1.03 mg/dL (0.60-1.20); Globulin, Blood 3.1 g/dL (2.2-4.0)
--- NOTE | 2023-10-10 17:42 | NUR ---
Telephone report received from SHERLY Cotter. Pt will be coming to PCU 4 from.
[2023-10-10 18:02] VITALS: BP 140/69; BP 140/92
--- NOTE | 2023-10-10 18:44 | NUR ---
Pt arrived from the ED to PCU 4 in stretcher. Alert, oriented and pleasantly conversant. Sat on side of stretcher, stated that he was still feeling dizzy. Was able to stand and transfer to the bed, states chest pain quite tolerable at 3/10, but mild dizzyness ongoing. Able to stand and use the urinal independently, then to walk over to the sink and wash his hands, but did said that he felt a little more short of breath with this activity. Has a chronic dry cough of unknown origin. Vital signs taken. Noted Sinus rhythm with frequent PVCs on bedside media monitor. He is sitting on the side of the bed eating dinner at this time. States his is coming in to bring him his home CPAP machine and some personal items.
[2023-10-10 20:16] VITALS: BP 108/64
[2023-10-11 02:53] VITALS: BP 101/65
[2023-10-11 03:09] LABS: Bun/Creatinine Ratio 17.1 (12.0-20.0); Calcium, Blood 8.6 mg/dL (8.5-10.1); Creatinine, Blood 1.05 mg/dL (0.60-1.20); Potassium, Blood 3.9 mmol/L (3.5-5.5)
--- NOTE | 2023-10-11 06:01 | NUR ---
NOC SHIFT SUMMARY PT ORIENTED X4, CALM AND COOPERATIVE OVERNIGHT. VSS. SR/SB ON TELEMETRY. LOWEST HR IN 40S. ONE EPISODE OF BIGEMINY. VSS. TROPONIN TRENDED DOWN VIA AM LABS. CHEST DISCOMFORT 11/22 THIS AM. NITRO PASTE ON L CHEST. POSSIBLE D/C TODAY. WILL PASS ON TO DAY RN.
[2023-10-11 07:24] VITALS: BP 111/67
--- NOTE | 2023-10-11 07:27 | NUR ---
NURSING PCU DAYSHIFT: Assumed care of pt at approx 0700. A/O, very pleasant, cooperative w/care. C/O 11/22 chronic RUIZ per pt, denies need for tx/management. Skin intact, no breakdown noted. Ambulates independently and w/o difficulty, no c/o dizziness/light headedness this a.m. Tele in place, SB 50's w/PVC's, SBP 111, no c/o CP/pressure, no noted edema. L/S cta t/o, O2 sat upper 90's on RA, denies dyspnea, no noted cough. Abd SNT, BT+, c/o constipation, voiding w/o difficulty per pt. PIV x1, s/l. No s/s of acute distress this a.m. OOB to recliner w/o difficulty. Nitro paste from previous day removed and area cleansed. Will hold BB this a.m. d/t HR. Pt denies any current needs or questions. Awaiting rounding from PMD to discuss plan of care. Call light in reach, cont to monitor for any changes.
[2023-10-11 11:12] VITALS: BP 97/55
[2023-10-11 15:49] VITALS: BP 106/53
--- NOTE | 2023-10-11 17:39 | NUR ---
NURSING PCU DAYSHIFT SUMMARY: Pt has done well t/o the shift. Seen by PMD, new d/o received. HR remained 60's after a.m. medication administration. No c/o dizziness/light headedness. C/O 11/22 substernal/epigastric discomfort after initial shift assessment. Though not completely resolved, pt reported some improvement after administration of GI cocktail. Pt spent majority of the shift OOB in chair, tolerated well. S/O at bedside intermittently t/o day, plan of care discussed, questions answered. Pt and spouse deny and questions/needs at this time, call light in reach, cont to monitor until rpt is given to NOC RN.
[2023-10-11 20:47] VITALS: BP 96/65
[2023-10-11 22:54] VITALS: BP 113/72
[2023-10-12 03:53] VITALS: BP 98/67
--- NOTE | 2023-10-12 05:09 | NUR ---
SHIFT SUMMARY. SHIFT HAS BEEN MOSTLY UNREMARKABLE. PT AOX4, PLEASANT, COOPERATIVE WITH CARE. INDEPENDENT TRANSFER AND CALLS APPROPRIATELY FOR ASSISTANCE. TELE ON WITH NO EVENTS THUS FAR THIS SHIFT. HAS BEEN WEARING CPAP WHILE SLEEPING THROUGHOUT MOST OF SHIFT. NO PAIN REPORTED THIS SHIFT. SATS WELL ON ROOM AIR WHILE AWAKE. BED LOCKED IN LOWEST POSITION. CALL LIGHT LEFT WITHIN REACH.
[2023-10-12 07:38] VITALS: BP 130/75
--- NOTE | 2023-10-12 09:52 | NUR ---
AM NOTE: ALERT AND ORIENTED X4. DENIES NUMBNESS/TINGLING. UP IND IN ROOM. SHOWER COMPLETED THIS AM. DR. ROY AT BEDSIDE, POSSIBLE DISCHARGE THIS AFTERNOON. TELE SHOWING SB/SR WITH HR 60'S. CHEST PAIN 11/22, NONRADIATING. PATIENT DESCRIBES THIS PAIN VERY MILD. PPP. NO EDEMA NOTED. ON ROOM AIR SATING ABOVE 95%. DENIES SOB. WEARING CPAP DURING NIGHT. EVEN AND UNLABORED RESPIRATIONS. LUNGS SOUNDING CLEAR AND DIM IN BASES. BOWEL TONES PRESENT. EATING AND VOIDING WNL. IV SALINE LOCKED. SKIN OVERALL C/D/I. PATIENT UP IN RECLINER AT THIS TIME AND DENIES NEEDS.
[2023-10-12 11:18] VITALS: BP 107/65
--- NOTE | 2023-10-12 12:22 | NUR ---
DISCHARGE: NO ACUTE CHANGES. NO INCREASE IN CHEST PAIN. IV REMOVED WNL. PATIENT ABLE TO DRESS SELF. THIS RN REVIEWED DISCHARGE INSTRUCTIONS WHICH INCLUDED NEW MEDICATIONS, DOSE CHANGES, SIGNS AND SYMPTOMS OF WHEN TO RETURN AND FOLLOW UP APPOINTMENTS. PATIENT ABLE TO TEACH BACK EDUCATION. PATIENT LEFT UNIT WITH ALL PERSONAL BELONGINGS VIA WHEELCHAIR
== END 2023-10-12 12:20 | disposition home or self-care (01) ==
LOC: ER 14:21 → PCU 14:22
PROVIDERS: Emergency Medicine; Nurse Practitioner Acute Care; ADMIT Internal Medicine
DX: I49.8 Other specified cardiac arrhythmias (principal); I21.A1 Myocardial infarction type 2; I20.89 Other forms of angina pectoris; I11.0 Hypertensive heart disease with heart failure; I50.32 Chronic diastolic (congestive) heart failure; E03.9 Hypothyroidism, unspecified; G47.33 Obstructive sleep apnea (adult) (pediatric); Z95.5 Presence of coronary angioplasty implant and graft; Z88.6 Allergy status to analgesic agent; Z88.5 Allergy status to narcotic agent; Z79.02 Long term (current) use of antithrombotics/antiplatelets; Z79.82 Long term (current) use of aspirin; Z79.890 Hormone replacement therapy; Z79.899 Other long term (current) drug therapy
CPT/HCPCS: 36415; 71045; 80048; 80053; 83735; 84443; 84484; 85025; 93005; 93010; 94660; 94762; 96372; 96374; 99285-25; A9270; G0378; J1650

== ENCOUNTER 2023-10-13 09:32 | Emergency (ER) | payer MEDICARE, BC ==
[~2023-10-13] VITALS: Ht 170.2 cm; Wt 92.5 kg
[2023-10-13 11:03] VITALS: BP 114/76
== END 2023-10-13 11:20 | disposition home or self-care (01) ==
LOC: ER 09:32
DX: I95.2 Hypotension due to drugs (principal); T44.7X5A Adverse effect of beta-adrenoreceptor antagonists, initial encounter; T46.3X5A Adverse effect of coronary vasodilators, initial encounter
CPT/HCPCS: 99284

== ENCOUNTER 2023-10-13 16:43 | Inpatient (IN) | payer MEDICARE, BC ==
[~2023-10-13] VITALS: Ht 170.2 cm; Wt 91.4 kg
[2023-10-13 17:58] LABS: Albumin, Blood 3.5 g/dL (3.4-5.0); Albumin/Globulin Ratio 1.2 (0.8-1.8); Bilirubin, Total 0.8 mg/dL (0.1-1.0); Bun/Creatinine Ratio 21.1 (12.0-20.0); Calcium, Blood 8.7 mg/dL (8.5-10.1); Creatinine, Blood 0.9 mg/dL (0.60-1.20); Globulin, Blood 2.8 g/dL (2.2-4.0); Potassium, Blood 3.9 mmol/L (3.5-5.5); Total Protein, Blood 6.3 g/dL (6.4-8.2)
[2023-10-13 19:18] LABS: BASOPHILS ABSOLUTE AUTO 0.04 K/mm3 (0.00-0.23); BASOPHILS PERCENT AUTO 1 % (0-2); EOSINOPHILS ABSOLUTE AUTO 0.15 K/mm3 (0.00-0.68); EOSINOPHILS PERCENT AUTO 2 % (0-6); Hematocrit 37.6 % (37.0-53.0); Hemoglobin 13.1 g/dL (13.5-17.5); IMMATURE GRAN ABSOLUTE AUTO 0.03 K/mm3 (0.00-0.10); IMMATURE GRAN PERCENT AUTO 1 % (0-1); LYMPHOCYTES ABSOLUTE AUTO 2.38 K/mm3 (0.84-5.20); LYMPHOCYTES PERCENT AUTO 38 % (21-46); MONOCYTES ABSOLUTE AUTO 0.59 K/mm3 (0.16-1.47); MONOCYTES PERCENT AUTO 9 % (4-13); Mean Corpuscular HGB 32.8 pg (26.0-34.0); Mean Corpuscular HGB Conc 34.8 g/dL (31.5-36.5); Mean Corpuscular Volume 94 fL (80-100); Mean Platelet Volume 10.5 fL (9.1-12.4); NEUTROPHILS ABSOLUTE AUTO 3.15 K/mm3 (1.96-9.15); NEUTROPHILS PERCENT AUTO 50 % (41-73); Platelet Count 172 K/mm3 (150-400); RDW Coefficient Variation 12.9 % (11.7-14.2); RDW Standard Deviation 44.4 fL (35.1-46.3); White Blood Cell Count 6.34 K/mm3 (4.00-11.30)
[2023-10-13 23:28] VITALS: BP 131/79
[2023-10-14 02:42] LABS: BASOPHILS ABSOLUTE AUTO 0.06 K/mm3 (0.00-0.23); BASOPHILS PERCENT AUTO 1 % (0-2); EOSINOPHILS ABSOLUTE AUTO 0.17 K/mm3 (0.00-0.68); EOSINOPHILS PERCENT AUTO 3 % (0-6); Hematocrit 36.8 % (37.0-53.0); Hemoglobin 12.6 g/dL (13.5-17.5); IMMATURE GRAN ABSOLUTE AUTO 0.01 K/mm3 (0.00-0.10); IMMATURE GRAN PERCENT AUTO 0 % (0-1); LYMPHOCYTES ABSOLUTE AUTO 2.44 K/mm3 (0.84-5.20); LYMPHOCYTES PERCENT AUTO 41 % (21-46); MONOCYTES ABSOLUTE AUTO 0.55 K/mm3 (0.16-1.47); MONOCYTES PERCENT AUTO 9 % (4-13); Mean Corpuscular HGB 32.6 pg (26.0-34.0); Mean Corpuscular HGB Conc 34.2 g/dL (31.5-36.5); Mean Corpuscular Volume 95 fL (80-100); Mean Platelet Volume 10.1 fL (9.1-12.4); NEUTROPHILS ABSOLUTE AUTO 2.66 K/mm3 (1.96-9.15); NEUTROPHILS PERCENT AUTO 45 % (41-73); Platelet Count 163 K/mm3 (150-400); RDW Standard Deviation 45.1 fL (35.1-46.3); Red Blood Cell Count 3.86 M/mm3 (4.30-5.90); White Blood Cell Count 5.89 K/mm3 (4.00-11.30)
[2023-10-14 03:03] LABS: Albumin, Blood 3.3 g/dL (3.4-5.0); Albumin/Globulin Ratio 1.3 (0.8-1.8); Bilirubin, Total 0.8 mg/dL (0.1-1.0); Bun/Creatinine Ratio 17.1 (12.0-20.0); Calcium, Blood 8.2 mg/dL (8.5-10.1); Creatinine, Blood 0.88 mg/dL (0.60-1.20); Globulin, Blood 2.5 g/dL (2.2-4.0); Total Protein, Blood 5.8 g/dL (6.4-8.2)
[2023-10-14 03:31] VITALS: BP 111/68
--- NOTE | 2023-10-14 06:36 | NUR ---
Shift Summary Pt admitted to this unit from ED with Dx of syncope. He had been having chest pain at home, near sycope and bradycardia in the ER. Since arriving at the hospital chest pain has been 1/10, where it was as bad as 5/10 earlier in the day yesterday. Pt troponin is trending up, it was 109 on arrival to ER and last measurement was 134, noc hospitalist notified. Per ER report pt did not have orthostatic hypotension but did get tachycardic and dizzy during ambulation. Pt has been very stead on his feet since arriving but does admit he gets dizzy spells sometimes at home. On tele running SR in the 60's, no calls from telemetry. AOx4, 1 sba.
[2023-10-14 07:45] VITALS: BP 125/78
[2023-10-14 15:39] VITALS: BP 127/74
--- NOTE | 2023-10-14 16:19 | NUR ---
PT IS A/OX4, PLEASANT AND COOPERATIVE. THE PT IS UP IND IN HIS ROOM. THE PT DOES REPORT SOME LIGHTHEADEDNESS AT TIMES WHEN GETTING UP. THE PT CONTINUES TO REPORT VERY MILD TO NO CHEST PAIN. THE PT DENIES N/V OR SOB AT THIS TIME. PLAN IS FOR THE PATIENT TO TRANSFER TO [facility] FOR SURGERY WHEN A BED IS AVAILABLE. CALL LIGHT IN REACH. BED IN THE LOW POSITION
[2023-10-14 19:39] VITALS: BP 120/72
[2023-10-14 21:20] VITALS: BP 136/67
--- NOTE | 2023-10-15 02:29 | NUR ---
PT A&O x4, VSS, AFEBRILE. PT CALM AND COOPERATIVE WITH CARE PROVIDED. PT AMBULATED THE HALLWAY WITH THIS AUTHOR. PT AMBULATED WITH A STEADY GAIT, USING A FWW. PT MENTIONED HE DID EXPERIENCE SOME LIGHTHEADEDNESS AFTER GETTING BACK TO HIS ROOM AFTER THE WALK. NO C/O CHEST PAIN, NO SOB, NO PAIN/DISCOMFORT OTHERWISE. PT SLEPT WELL, TOLERATED CPAP MACHINE OVERNIGHT. CALL LIGHT WITHIN REACH, WCTM.
[2023-10-15 04:09] VITALS: BP 126/80
[2023-10-15 07:44] VITALS: BP 124/58
--- NOTE | 2023-10-15 13:13 | NUR ---
REPORT OF TRANSFER REPORT GIVEN TO ALICIA LENTZ RN AT [facility]
[2023-10-15 13:16] VITALS: BP 124/58
--- NOTE | 2023-10-15 15:03 | NUR ---
PT TRANSFERED TO [facility] VIA AMBULANCE
== END 2023-10-15 15:00 | disposition short-term general hospital (02) | DRG 312 ==
LOC: ER 16:43 → MEDS 16:44
PROVIDERS: Student in an Organized Health Care Education/Training Program; ADMIT Internal Medicine
PROC: 5A09357 Assistance with Respiratory Ventilation, Less than 24 Consecutive Hours, Continuous Positive Airway Pressure (ICD-10-PCS; principal; 2023-10-14)
DX: R55 Syncope and collapse (principal); I50.32 Chronic diastolic (congestive) heart failure; R00.1 Bradycardia, unspecified; E03.9 Hypothyroidism, unspecified; I25.10 Atherosclerotic heart disease of native coronary artery without angina pectoris; G47.33 Obstructive sleep apnea (adult) (pediatric); K21.9 Gastro-esophageal reflux disease without esophagitis; Z88.5 Allergy status to narcotic agent; Z88.8 Allergy status to other drugs, medicaments and biological substances; Z95.5 Presence of coronary angioplasty implant and graft; Z99.81 Dependence on supplemental oxygen; Z79.899 Other long term (current) drug therapy; Z79.82 Long term (current) use of aspirin; Z79.890 Hormone replacement therapy; I25.2 Old myocardial infarction; Z86.711 Personal history of pulmonary embolism; Z98.890 Other specified postprocedural states; Z86.010 Personal history of colon polyps
CPT/HCPCS: 36415; 71046; 80053; 83735; 83880; 84439; 84484; 85025; 85379; 93005; 93010; 96360; 96361; 96372; 99285-25; A9270; G0378; J1650; J7030

== ENCOUNTER 2024-09-27 16:10 | Emergency (ER) | payer MEDICARE, BC ==
[~2024-09-27] VITALS: Ht 170.2 cm; Wt 87.5 kg
[~2024-09-27 16:10] MED LIST changes: +ALBU90OI INH; +FARXIGA; +FISH OIL; +Flomax0.4 MG; +GUAI600T33; +LEVOTHYROXINE88 MC9; +MYRBETRIQ; +NSAIDS; +Nitroglycerin0.4 MG; +SPIR25; +SUCRALFATE; +VITAMIN D3
[2024-09-27 17:11] LABS: BASOPHILS ABSOLUTE AUTO 0.07 K/mm3 (0.00-0.23); BASOPHILS PERCENT AUTO 1 % (0-2); EOSINOPHILS ABSOLUTE AUTO 0.13 K/mm3 (0.00-0.68); EOSINOPHILS PERCENT AUTO 2 % (0-6); Hematocrit 41.3 % (37.0-53.0); Hemoglobin 14.3 g/dL (13.5-17.5); IMMATURE GRAN ABSOLUTE AUTO 0.02 K/mm3 (0.00-0.10); IMMATURE GRAN PERCENT AUTO 0 % (0-1); LYMPHOCYTES ABSOLUTE AUTO 1.92 K/mm3 (0.84-5.20); LYMPHOCYTES PERCENT AUTO 32 % (21-46); MONOCYTES ABSOLUTE AUTO 0.53 K/mm3 (0.16-1.47); MONOCYTES PERCENT AUTO 9 % (4-13); Mean Corpuscular HGB 32.6 pg (26.0-34.0); Mean Corpuscular HGB Conc 34.6 g/dL (31.5-36.5); Mean Corpuscular Volume 94 fL (80-100); Mean Platelet Volume 9.9 fL (9.1-12.4); NEUTROPHILS ABSOLUTE AUTO 3.33 K/mm3 (1.96-9.15); NEUTROPHILS PERCENT AUTO 56 % (41-73); Platelet Count 179 K/mm3 (150-400); RDW Coefficient Variation 12.3 % (11.7-14.2); RDW Standard Deviation 42.7 fL (35.1-46.3); Red Blood Cell Count 4.38 M/mm3 (4.30-5.90)
[2024-09-27 17:25] LABS: Albumin, Blood 3.5 g/dL (3.4-5.0); Albumin/Globulin Ratio 1.2 (0.8-1.8); Bun/Creatinine Ratio 18.7 (12.0-20.0); Calcium, Blood 8.6 mg/dL (8.5-10.1); Creatinine, Blood 0.91 mg/dL (0.60-1.20); Globulin, Blood 2.9 g/dL (2.2-4.0); Potassium, Blood 3.9 mmol/L (3.5-5.5); Total Protein, Blood 6.4 g/dL (6.4-8.2)
[2024-09-27] MEDS ORDERED: ACET325 PO (18:41)
[2024-09-27] MEDS ORDERED: VITAMIN D325 MC3 PO (18:42)
[2024-09-27] MEDS ORDERED: ALEVAZOL56.7 G1 TOP (18:43)
[2024-09-27] MEDS ORDERED: FURO20 PO (18:44)
[2024-09-27 21:31] VITALS: BP 124/74
== END 2024-09-27 21:30 | disposition home or self-care (01) ==
LOC: ER 16:10
PROVIDERS: Physician Assistant
DX: R07.2 Precordial pain (principal); R06.02 Shortness of breath; E03.9 Hypothyroidism, unspecified; G47.33 Obstructive sleep apnea (adult) (pediatric); Z79.82 Long term (current) use of aspirin; Z79.02 Long term (current) use of antithrombotics/antiplatelets; Z79.899 Other long term (current) drug therapy; Z88.6 Allergy status to analgesic agent; Z88.5 Allergy status to narcotic agent; Z88.8 Allergy status to other drugs, medicaments and biological substances
CPT/HCPCS: 71046; 71260; 80053; 83880; 84484; 85025; 93005; 93010; 99285-25; Q9967

== ENCOUNTER 2025-09-19 09:15 | Day surgery (SDC) | payer MEDICARE, BC ==
[~2025-09-19] VITALS: Ht 170.2 cm; Wt 86.3 kg
[~2025-09-19 09:15] MED LIST changes: +ACET325 PO; +ALEVAZOL56.7 G1 TOP; +Bupivacaine 0.5% W/EPI 1:200000 SDV 30 ML Vial ONE; +FURO20 PO; +VITAMIN D325 MC3 PO
[2025-09-19] MEDS ORDERED: CeFAZolin Sodium 2,000 MG VIAL ONE (09:21)
[2025-09-19] MEDS ORDERED: FentaNYL Citrate 50 MCG/ML 2 ML Injection ONE (10:41)
[2025-09-19] MEDS ORDERED: Midazolam HCl 1MG / ML 2ML Vial ONE (10:41)
[2025-09-19] MEDS ORDERED: Citric Acid/Sodium Citrate 30 ML BTL ONE (11:27)
[2025-09-19] MEDS ORDERED: Metoclopramide HCl 5MG / ML 2ML Vial ONE (11:27)
[2025-09-19] MEDS ORDERED: Ondansetron HCl 2 MG / ML 2ML Vial ONE (12:00)
[2025-09-19 12:30] VITALS: BP 97/65
--- NOTE | 2025-09-19 12:46 | NUR ---
09/19/25 1246 MAURA MADRID SITTING EDGE OF ANDREY "A LITTLE BIT" DIZZY
[2025-09-19] MEDS ORDERED: HYDROcodone 5-APAP 325 TAB ONE (13:33)
== END 2025-09-19 13:56 | disposition home or self-care (01) ==
LOC: ORSCSDS 09:15
PROVIDERS: Podiatrist Foot & Ankle Surgery
PROC: 0J8R3ZZ Division of Left Foot Subcutaneous Tissue and Fascia, Percutaneous Approach (ICD-10-PCS; principal; 2025-09-19 10:45)
PROC: 0L8P0ZZ Division of Left Lower Leg Tendon, Open Approach (ICD-10-PCS; principal; 2025-09-19 10:45)
DX: M72.2 Plantar fascial fibromatosis (principal); M24.572 Contracture, left ankle; I10 Essential (primary) hypertension; I48.91 Unspecified atrial fibrillation; I25.10 Atherosclerotic heart disease of native coronary artery without angina pectoris; K21.9 Gastro-esophageal reflux disease without esophagitis; Z79.899 Other long term (current) drug therapy; E03.9 Hypothyroidism, unspecified; Z79.84 Long term (current) use of oral hypoglycemic drugs; J45.909 Unspecified asthma, uncomplicated; I25.2 Old myocardial infarction
CPT/HCPCS: 82947; A6253; A9270; J0690; J2250; J2405; J2704; J2765; J3010; J7120

== ENCOUNTER 2025-11-10 11:52 | Emergency (ER) | payer MEDICARE, BC ==
[~2025-11-10] VITALS: Ht 170.2 cm; Wt 86.6 kg
[~2025-11-10 11:52] MED LIST changes: -Bupivacaine 0.5% W/EPI 1:200000 SDV 30 ML Vial ONE; -FARXIGA; +FARXIGA PO; -Flomax0.4 MG; +Flomax0.4 MG PO
[2025-11-10 12:29] LABS: BASOPHILS ABSOLUTE AUTO 0.05 K/mm3 (0.00-0.23); BASOPHILS PERCENT AUTO 1 % (0-2); EOSINOPHILS ABSOLUTE AUTO 0.11 K/mm3 (0.00-0.68); EOSINOPHILS PERCENT AUTO 2 % (0-6); Hematocrit 43.1 % (37.0-53.0); Hemoglobin 15.1 g/dL (13.5-17.5); IMMATURE GRAN ABSOLUTE AUTO 0.01 K/mm3 (0.00-0.10); IMMATURE GRAN PERCENT AUTO 0 % (0-1); LYMPHOCYTES ABSOLUTE AUTO 1.93 K/mm3 (0.84-5.20); LYMPHOCYTES PERCENT AUTO 27 % (21-46); MONOCYTES ABSOLUTE AUTO 0.67 K/mm3 (0.16-1.47); MONOCYTES PERCENT AUTO 9 % (4-13); Mean Corpuscular HGB Conc 35.0 g/dL (31.5-36.5); Mean Corpuscular Volume 93 fL (80-100); NEUTROPHILS ABSOLUTE AUTO 4.48 K/mm3 (1.96-9.15); NEUTROPHILS PERCENT AUTO 62 % (41-73); NRBC ABSOLUTE 0.00 K/mm3 (0.00-0.02); NRBC Auto 0.0 /100 WBC (0.0-0.2); Platelet Count 150 K/mm3 (150-400); RDW Coefficient Variation 12.4 % (11.7-14.2); RDW Standard Deviation 42.4 fL (35.1-46.3)
[2025-11-10] MEDS ORDERED: METOPROLOL SUCC25 MG PO (12:48)
[2025-11-10] MEDS ORDERED: MIRABEGRON ER50 MG PO (12:49)
[2025-11-10 13:03] LABS: Alanine Aminotransfer (ALT/SGP 45.0 U/L (12-78); Albumin, Blood 3.7 g/dL (3.4-5.0); Albumin/Globulin Ratio 1.1 (0.8-1.8); Anion Gap 7.0 mmol/L (3-11); Aspartate Aminotrans (AST/SGOT 25.0 U/L (12-37); Bilirubin, Total 1.6 mg/dL (0.1-1.0); Blood Urea Nitrogen 18.0 mg/dL (8-24); CO2, Blood 26.0 mmol/L (21-32); Calcium, Blood 9.0 mg/dL (8.5-10.1); Chloride, Blood 107.0 mmol/L (98-108); Creatinine, Blood 1.12 mg/dL (0.60-1.20); Globulin, Blood 3.5 g/dL (2.2-4.0); Glucose, Blood 96.0 mg/dL (70-99); Potassium, Blood 4.2 mmol/L (3.5-5.5); Sodium, Blood 136.0 mmol/L (136-145); Total Protein, Blood 7.2 g/dL (6.4-8.2)
[2025-11-10 17:45] VITALS: BP 108/68
== END 2025-11-10 18:45 | disposition home or self-care (01) ==
LOC: ER 11:52
PROVIDERS: Emergency Medicine
DX: I49.3 Ventricular premature depolarization (principal); R06.02 Shortness of breath; R00.1 Bradycardia, unspecified; R07.89 Other chest pain; I25.10 Atherosclerotic heart disease of native coronary artery without angina pectoris; I25.2 Old myocardial infarction; I50.30 Unspecified diastolic (congestive) heart failure; E03.9 Hypothyroidism, unspecified; G47.33 Obstructive sleep apnea (adult) (pediatric); Z95.1 Presence of aortocoronary bypass graft; Z95.5 Presence of coronary angioplasty implant and graft; Z88.6 Allergy status to analgesic agent; Z88.5 Allergy status to narcotic agent; Z79.82 Long term (current) use of aspirin; Z79.890 Hormone replacement therapy; Z79.899 Other long term (current) drug therapy
CPT/HCPCS: 71046; 80053; 83880; 84484; 85025; 93005; 93010; 93306; 99285-25